=== PATIENT | male | born 1980 | race Caucasian/White ===

== ENCOUNTER 2023-07-08 07:07 | Emergency (ER) | payer MEDICAID, SELFPAY ==
[2023-07-08] VITALS (17 sets, daily range): BP systolic 139–164; BP diastolic 97–112; PULSE 74–102; RESP 13–23; TEMP 36.6–37; O2SAT 92–100
--- NOTE | ~2023-07-08 | XR_ITS ---
Portable chest x-ray Comparison: None Clinical History: Chest pain, cough Findings: Lungs are clear, without focal consolidation or pleural effusion. Cardiomediastinal silho uette is stable. Bones and soft tissues are unremarkable. Impression: Clear lungs. Reviewed, dictated and finalized at location . OL DIRECTOR Impression: Clear lungs.
--- NOTE | 2023-07-08 07:18 | ECG_ITS ---
Measurements Intervals [place] Rate: 94 P: 32 HI: 172 QRS: 23 QRSD: 93 T: 41 QT: 376 QTc: 471 Interpretive Statements SINUS RHYTHM NORMAL ECG NO PREVIOUS ECG AVAILABLE FOR COMPARISON Electronically Signed On 07-08-2023 7:59:03 FUSION OPERATOR by Darci Knox D.O.
[2023-07-08 07:43] LABS: Basophils Percent Auto 0.4 % (0.2-1.2); Eosinophils Absolute Auto 0.1 K/mm3 (0-0.3); Eosinophils Percent Auto 1.2 % (0-4.4); Hematocrit 44.1 % (42.0-52.0); Hemoglobin 14.3 g/dL (14.0-18.0); Immature Granulocyte Absolute 0.02 K/mm3 (0.00-0.031); Immature Granulocyte Percent A 0.4 % (0-0.5); Lymphocytes Percent Auto 46.3 % (18.3-44.2); Mean Corpuscular HGB Conc 32.4 g/dl (32-36); Mean Corpuscular Hemoglobin 31.8 pg (26-34); Mean Platelet Volume 9.2 fl (7.4-10.4); Monocytes Absolute Auto 0.3 K/mm3 (0.1-0.6); Monocytes Percent Auto 6.6 % (2.6-8.5); Neutrophils Absolute Auto 2.3 K/mm3 (1.3-6.7); Neutrophils Percent Auto 45.1 % (45.5-73.1); Platelet Count Result 205 k/mm3 (150-375); Red Cell Distribution Width 13.9 % (11.5-14.5); White Blood Count 5.2 K/mm3 (4.5-10.0)
[2023-07-08 07:51] LABS: Alanine Aminotransferase 58 U/L (6-50); Albumin Level 3.9 g/dL (3.5-5.1); Alkaline Phosphatase 74 U/L (38-126); Anion Gap 9 mmol/L (8-16); Aspartate Amino Transferase 58 U/L (17-59); Bilirubin,Total 0.2 mg/dL (0.2-1.3); Blood Urea Nitrogen 10 mg/dL (9-20); Calcium 8.4 mg/dL (8.4-10.2); Carbon Dioxide 26 mmol/L (22-30); Chloride 103 mmol/L (98-107); Estimated CRCL calculation 174 ml/min; Estimated Glomerular Filt Rate > 60; Glucose 104 mg/dL (65-110); Potassium 4.3 mmol/L (3.4-5.0); Sodium 138 mmol/L (137-145)
--- NOTE | 2023-07-08 08:13 | ED.GENADULT ---
HPI - General Adult General Chief complaint: Shortness of Breath/Dyspnea Stated complaint: shortness of breath Time Seen by Provider: 07/08/23 07:19 History of Present Illness HPI narrative: 43-year-old male presenting to emergency department for evaluation persistent cough congestion and is not feeling well. Patient suspects but 2 weeks ago he had COVID. Patient had similar symptoms with cough and congestion to a co-worker who did test positive for COVID. Patient did not test himself but assumed it was COVID. Patient states that over the course of the last 2 weeks his symptoms have not improved. Patient is a smoker. Patient denies any prior cardiac history. Patient denies any chest pain with this. Related Data Allergies Allergy/AdvReac Type Severity Reaction Status Date / Time No Known Allergies Allergy Verified 07/08/23 07:09 Review of Systems Review of Systems: All systems reviewed & are unremarkable except as noted in HPI and below Exam Narrative: APPEARANCE: Well appearing, no pain, no distress, well-nourished. HEAD: normocephalic, atraumatic. EYES: PERRLA/EOMI, conjunctivae clear. NOSE: Normal no drainage EARS:TMS clear with good light reflex. THROAT: Pharynx clear, no exudate. NECK: Supple. No adenopathy, no masses. RESPIRATORY: Airway patent, respirations nonlabored. After [place] wheeze and lower lung sood CARDIOVASCULAR: Regular rate and rhythm without murmurs rubs or gallops. ABDOMINAL: Soft, nontender, nondistended, normal bowel sounds MUSCULOSKELETAL: Moves all extremities. Strength/ROM intact, No edema, No calf tenderness. NEURO: Alert. Cranial nerves II through XII intact. Grossly intact SKIN: Warm, dry. Normal Color Course Course Emergency Course: 43-year-old male presents emergency department for evaluation of cough and congestion after COVID infection approximately 2 weeks ago. Patient is afebrile with no leukocytosis and a stable hemoglobin. Patient has no oxygen requirement. Patient's D-dimer is not elevated. Patient has no acute abnormalities on his CMP. Patient was positive for COVID. A 2 to the patient being a smoker and having for symptoms for greater than 2 weeks patient will be started on antibiotics. Patient states he has a nebulizer at home and will be prescribed Ativan and patient also be provided Ativan inhaler. Patient was encouraged to quit smoking. Patient was encouraged of close follow-up with primary care physician. Patient was stable at time of discharge and did feel improved. Vital Signs Vital signs: Vital Signs Temperature 97.8 F 07/08/23 07:11 Pulse Rate 100 07/08/23 07:11 Respiratory Rate 18 07/08/23 07:11 Blood Pressure 152/112 H 07/08/23 07:11 Pulse Oximetry 96 07/08/23 07:11 Oxygen Delivery Room Air 07/08/23 07:11 Temperature 98.6 F 07/08/23 07:22 Pulse Rate 102 H 07/08/23 10:30 Respiratory Rate 20 07/08/23 10:30 Blood Pressure 158/102 H 07/08/23 10:30 Pulse Oximetry 100 07/08/23 10:30 Oxygen Delivery Room Air 07/08/23 07:22 Medical Decision Making Differential Diagnosis Differential Diagnosis: COVID, pneumonia, RSV, influenza, COPD, CHF Vital Signs Vital Signs: Vital Signs Temperature 97.8 F 07/08/23 07:11 Pulse Rate 100 07/08/23 07:11 Respiratory Rate 18 07/08/23 07:11 Blood Pressure 152/112 H 07/08/23 07:11 Pulse Oximetry 96 07/08/23 07:11 Oxygen Delivery Room Air 07/08/23 07:11 Temperature 98.6 F 07/08/23 07:22 Pulse Rate 102 H 07/08/23 10:30 Respiratory Rate 20 07/08/23 10:30 Blood Pressure 158/102 H 07/08/23 10:30 Pulse Oximetry 100 07/08/23 10:30 Oxygen Delivery Room Air 07/08/23 07:22 Lab Data Lab results reviewed: Yes I reviewed the patient's lab results. 07/08/23 07:33 07/08/23 07:33 Labs: Lab Results 07/08/23 Range/Units 07:33 WBC 5.2 (4.5-10.0) K/mm3 RBC 4.50 L (4.6-6.20) M/mm3 Hgb 14.3 (14.0-18.
[2023-07-08 08:19] LABS: Influenza A QL RT-PCR Negative (Negative); Influenza B QL RT-PCR Negative (Negative); RSV RNA, RT-PCR Negative (Negative); SARS-CoV-2 RNA PCR Positive (Negative)
[2023-07-08] MEDS: ALBUTEROL SULFATE NEB 2.5 MG/3 ML INH INHALATION (08:25)
[2023-07-08 09:37] LABS: D Dimer < 0.22 ug/mL (<0.48)
[2023-07-08] MEDS: AZITHROMYCIN 250 MG TABLET 500 MG PO (10:27)
[2023-07-08] MEDS: AMOXICILLIN/CLAVULANATE K 875-125 MG TAB 1 TABLET (10:28)
== END 2023-07-08 10:30 | disposition home or self-care (01) ==
PROVIDERS: Emergency Provider Emergency Medicine
DX: U07.1 COVID-19 (principal); J18.9 Pneumonia, unspecified organism; F17.200 Nicotine dependence, unspecified, uncomplicated
CPT/HCPCS: 36415; 71045; 80053; 85025; 85380; 87637; 93005; 94640; 99283; A9270

== ENCOUNTER 2023-10-15 12:30 | Emergency (ER) | payer MEDICAID, SELFPAY ==
--- NOTE | ~2023-10-15 | CT_ITS ---
EXAMINATION: CT abdomen pelvis wo con DATE: 10/15/2023 13:13 INDICATION: Periumbilical pain TECHNIQUE: Computed tomography (CT) of the abdomen and pelvis was performed without intravenous contr ast. The dose-length product was 1630.86 mGy-cm. Automated exposure control and iterative reconstruct ion technique were employed. COMPARISON: None. FINDINGS: Lung bases are unremarkable. Heart size normal. No significant pleural or pericardial effus ion. Fatty infiltration of the liver. The spleen, pancreas, adrenal glands and left kidney are unrema rkable. There is a small subcentimeter hypodensity of the right kidney, too small to characterize, al though unlikely benign. There is a small fat-containing umbilical hernia. There is a subtle infiltrat ion of the periumbilical fat. No abnormal pelvic masses or fluid collections. No significant vascular abnormality. No lymphadenopathy. Gallbladder is present. IMPRESSION: 1. Small fat-containing umbilical hernia. Subtle fatty infiltration of the periumbilical hernia fat. Cannot exclude cellulitis or fat necrosis. Reviewed, dictated and finalized at location B. IMPRESSION: 1. Small fat-containing umbilical hernia. Subtle fatty infiltration of the noy umbilical hernia fat. Cannot exclude cellulitis or fat necrosis.
[2023-10-15 12:57] VITALS: BP 146/93; PULSE 96; RESP 16; TEMP 36.7; O2SAT 100
[2023-10-15 13:12] LABS: Appearance Urine Clear (Clear); Bilirubin Urine Negative (Negative); Blood Urine Negative (Negative); Color Urine Dark Yellow (Yellow); Glucose Urine UA Negative (Negative); Ketones Urine Trace mg/dL (Negative); Leukocyte Esterase Ur Negative LEU/UL (Negative); Nitrate Urine Negative (Negative); Protein Urine Negative (Negative); pH Urine 5.5 (5.0-9.0)
[2023-10-15 13:14] LABS: Basophils Percent Auto 0.5 % (0.2-1.2); Eosinophils Absolute Auto 0.1 K/mm3 (0-0.3); Eosinophils Percent Auto 1.2 % (0-4.4); Hematocrit 42.8 % (42.0-52.0); Hemoglobin 13.8 g/dL (14.0-18.0); Immature Granulocyte Absolute 0.01 K/mm3 (0.00-0.031); Immature Granulocyte Percent A 0.2 % (0-0.5); Lymphocytes Absolute Auto 0.69 K/mm3 (0.9-3.2); Lymphocytes Percent Auto 16.7 % (18.3-44.2); Mean Corpuscular HGB Conc 32.2 g/dl (32-36); Mean Corpuscular Hemoglobin 32.2 pg (26-34); Mean Corpuscular Volume 99.8 fl (80-100); Mean Platelet Volume 9.3 fl (7.4-10.4); Monocytes Absolute Auto 0.3 K/mm3 (0.1-0.6); Monocytes Percent Auto 6.6 % (2.6-8.5); Neutrophils Absolute Auto 3.1 K/mm3 (1.3-6.7); Neutrophils Percent Auto 74.8 % (45.5-73.1); Platelet Count Result 158 k/mm3 (150-375); Red Blood Count 4.29 M/mm3 (4.6-6.20); Red Cell Distribution Width 14.1 % (11.5-14.5); White Blood Count 4.1 K/mm3 (4.5-10.0)
[2023-10-15 13:17] LABS: Add Urine Microscopic? NO
[2023-10-15] MEDS: oxyCODONE/ACETAMINOPHEN (*CRX) 5-325 MG TABLET 1 TABLET PO (13:17)
[2023-10-15 13:23] LABS: Alanine Aminotransferase 28 U/L (6-50); Albumin Level 3.9 g/dL (3.5-5.1); Alkaline Phosphatase 60 U/L (38-126); Anion Gap 4 mmol/L (4-12); Aspartate Amino Transferase 29 U/L (17-59); Bilirubin,Total 0.6 mg/dL (0.2-1.3); Blood Urea Nitrogen 8 mg/dL (9-20); Calcium 8.7 mg/dL (8.4-10.2); Carbon Dioxide 26 mmol/L (22-30); Chloride 103 mmol/L (98-107); Estimated CRCL calculation 185 ml/min; Estimated Glomerular Filt Rate > 60; Glucose 113 mg/dL (65-110); Potassium 3.8 mmol/L (3.4-5.0); Sodium 133 mmol/L (137-145)
--- NOTE | 2023-10-15 13:31 | ED.ABDPAIN ---
HPI - Abdominal Pain General Chief Complaint: Abdominal Pain Stated Complaint: abdominal pain Time Seen by Provider: 10/15/23 12:34 History of Present Illness HPI narrative: This is a 43-year-old male, with no significant past medical history, presents to the emergency department complaining of periumbilical abdominal pain for the past 2 days. The patient describes the pain as sharp without radiation and no obvious cause. He states it worsens after eating and improves with rest. He states his last bowel movement was 24 hours ago. He is not sure the last time he passed gas. He states in the past 3 days, he has had significantly increased cough, though denies shortness of breath. Related Data Allergies Allergy/AdvReac Type Severity Reaction Status Date / Time No Known Allergies Allergy Verified 10/15/23 12:32 Review of Systems Review of Systems: CONSTITUTIONAL: Denies fever, chills, or sweats. CARDIOVASCULAR: Denies chest pain, palpitations, or edema. RESPIRATORY: Nonproductive cough Denies dyspnea. GASTROINTESTINAL: Periumbilical abdominal pain Denies nausea, vomiting, or diarrhea. GENITOURINARY: . Denies dysuria or hematuria. SKIN: Denies rash or itching. MUSCULOSKELETAL: Denies back pain, joint pain, or myalgia. NEUROLOGIC: Denies headache, numbness, dizziness, or weakness. PSYCHIATRIC: Denies anxiety or depression. PMFSH Past Medical History Medical History (Updated 10/15/23 @ 13:43 by Tee Ruiz MD) No significant past medical history Surgical History Surgical History (Updated 10/15/23 @ 13:43 by Tee Ruiz MD) No significant past surgical history Social History Social History (Updated 10/15/23 @ 13:43 by Tee Ruiz MD) Smoking status: Current every day smoker Alcohol intake: current Substance use: never Exam Narrative: GENERAL: Well-developed, well-nourished, and in no acute distress. HEAD: Normocephalic, atraumatic. EYES: PERRLA and EOMI. CHEST: Clear to auscultation. No respiratory distress. No wheezes rales or rhonchi HEART: Regular rate and rhythm. No murmur heard. Normal peripheral pulses. ABDOMEN: Soft, tender palpation in the epigastric region, with a tender mobile mass, nondistended, normal active bowel sounds. With the patient placed in Trendelenburg position, I am able to read to reduce the mass at the umbilicus. Afterwards, the patient states pain is improved. EXTREMITIES: Normal range of motion. No edema. SKIN: Warm, dry, no rash. NEURO: Alert and oriented x3. No focal deficit. Moving all 4 limbs spontaneously PSYCH: Normal mood and affect. Course Course Emergency Course: 13:33 - The patient's exam is consistent with umbilical hernia. I was able to reduce this at bedside. CT demonstrates changes consistent with same. There are no changes concerning for strangulation. CBC and CMP within normal limits. UA not concerning for urinary tract infection. Will discharge with pain medications and recommendation for primary care and general surgery follow-up. I discussed the findings and recommendations with the patient. Discussed return and emergency precautions including signs/symptoms of acute abdomen and obstruction. The patient voiced understanding and agreement with the plan. All questions answered to his satisfaction. Vital Signs Vital signs: Vital Signs Temperature 98.0 F 10/15/23 12:57 Pulse Rate 96 10/15/23 12:57 Respiratory Rate 16 10/15/23 12:57 Blood Pressure 146/93 H 10/15/23 12:57 Pulse Oximetry 100 10/15/23 12:57 Oxygen Delivery Room Air 10/15/23 12:57 Temperature 98.0 F 10/15/23 12:57 Pulse Rate 96 10/15/23 12:57 Respiratory Rate 16 10/15/23 12:57 Blood Pressure 146/93 H 10/15/23 12:57 Pulse Oximetry 100 10/15/23 12:57 Oxygen Delivery Room Air 10/15/23 12:57 MDM - Abdominal Pain MDM Narrative Medical decision making narrative: Plan: Imaging, pain control, labs, reassess Differential
[2023-10-15 13:57] VITALS: BP 150/92; PULSE 95; RESP 18; O2SAT 96
== END 2023-10-15 13:58 | disposition home or self-care (01) ==
PROVIDERS: Emergency Provider Preventive Medicine Aerospace Medicine; Referring Provider Emergency Medicine
DX: R10.33 Periumbilical pain (principal); K42.9 Umbilical hernia without obstruction or gangrene; F17.210 Nicotine dependence, cigarettes, uncomplicated
CPT/HCPCS: 36415; 74176; 80053; 81003; 85025; 99284; A9270

== ENCOUNTER 2023-11-14 12:23 | Outpatient (CLI) | payer MEDICAID, SELFPAY ==
--- NOTE | ~2023-11-14 | US_ITS ---
Limited Abdominal Sonogram: Real-time sonographic imaging of the right upper quadrant was performed. Clinical History: Fatty liver Findings: The liver appears echogenic, with no evidence of mass lesion or bile duct dilatation. Main portal vein demonstrates normal direction of flow. The gallbladder is well distended, and appears no rmal with no evidence of gallstone or wall thickening. The common bile duct measures 5 mm. The visua lized pancreas, aorta, and IVC are unremarkable. Impression: Diffuse fatty infiltration of liver. Reviewed, dictated and finalized at location M. Impression: Diffuse fatty infiltration of liver.
== END 2023-11-14 12:24 | disposition home or self-care (01) ==
PROVIDERS: PCP Emergency Medicine; Visit Provider Emergency Medicine
DX: K76.0 Fatty (change of) liver, not elsewhere classified (principal)
CPT/HCPCS: 76705

== ENCOUNTER 2024-08-25 11:16 | Emergency (ER) | payer SELFPAY ==
--- NOTE | ~2024-08-25 | XR_ITS ---
XR chest 2V Ordering provider: Dariana Arias III DO History: 44 years Male with . leg swelling . Comparison: July 08, 2023 FINDINGS: MEDIASTINUM: The cardiac silhouette is slightly enlarged. LUNGS: No infiltrates, effusions or pneumothorax. OTHER: No free air under the diaphragm. IMPRESSION: No acute cardiopulmonary pathology. Reviewed, dictated and finalized at location A. GER BABY
--- NOTE | ~2024-08-25 | XR_ITS ---
EXAMINATION: XR knee RT 3V DATE: 08/25/2024 12:34 INDICATION: Right knee pain and swelling TECHNIQUE: Anteroposterior, oblique and crosstable lateral views of the right knee were obtained COMPARISON: None. FINDINGS: Alignment is normal. No fracture. Joint spaces appear normal on nonweightbearing imaging with no ost eophytosis. No joint effusion. Soft tissues are unremarkable. IMPRESSION: 1. Negative right knee radiographs. Reviewed, dictated and finalized at location B. E TIER
--- NOTE | ~2024-08-25 | XR_ITS ---
EXAMINATION: XR hip RT 2V w AP pelvis DATE: 08/25/2024 12:34 INDICATION: Right hip pain TECHNIQUE: Anteroposterior view of the pelvis and anteroposterior and frog-leg lateral views of the r ight hip were obtained. COMPARISON: None. FINDINGS: Bone alignment is normal. No fracture or suspected osteonecrosis. There is bilateral decreased femora l head/neck offset which could predispose towards cam-type femoral acetabular impingement with possib le impingement bump at the anterosuperior right femoral head neck junction. Mild bilateral hip and sa croiliac osteoarthritis.. IMPRESSION: 1. Mild bilateral hip and sacroiliac osteoarthritis. No acute osseous abnormality. 2. Bilateral decreased femoral head/neck offset which could predispose towards cam-type femoral aceta bular impingement. Reviewed, dictated and finalized at location B. BPM DEVELOPER IMPRESSION: 1. Mild bilateral hip and sacroiliac osteoarthritis. No acute osseous abnormali ty. 2. Bilateral decreased femoral head/neck offset which could predispose towards cam-type femoral acetabular impingement.
[2024-08-25 11:21] VITALS: BP 219/133; PULSE 80; RESP 19; O2SAT 97
--- NOTE | 2024-08-25 11:24 | ECG_ITS ---
Test Date: 2024-08-25 11:28:36 Measurements Intervals [place] Rate: 71 P: 40 [place]: 167 QRS: 35 QRSD: 94 T: 44 QT: 406 QTc: 442 Interpretive Statements SINUS RHYTHM WITH SINUS ARRHYTHMIA No previous ECG available for comparison Electronically Signed On 08-26-2024 10:59:52 [employer] by Waylon Stanford M.D.
[2024-08-25 11:49] LABS: Basophils Percent Auto 0.3 % (0.2-1.2); Eosinophils Percent Auto 0.4 % (0-4.4); Hematocrit 37.8 % (42.0-52.0); Hemoglobin 12.5 g/dL (14.0-18.0); Immature Granulocyte Absolute 0.04 K/mm3 (0.00-0.031); Immature Granulocyte Percent A 0.4 % (0-0.5); Lymphocytes Absolute Auto 2.06 K/mm3 (0.9-3.2); Lymphocytes Percent Auto 21.1 % (18.3-44.2); Mean Corpuscular HGB Conc 33.1 g/dl (32-36); Mean Corpuscular Hemoglobin 32.7 pg (26-34); Mean Platelet Volume 9.5 fl (7.4-10.4); Monocytes Absolute Auto 0.6 K/mm3 (0.1-0.6); Monocytes Percent Auto 5.6 % (2.6-8.5); Neutrophils Percent Auto 72.2 % (45.5-73.1); Platelet Count Result 223 k/mm3 (150-375); Red Blood Count 3.82 M/mm3 (4.6-6.20); White Blood Count 9.8 K/mm3 (4.5-10.0)
[2024-08-25 11:58] LABS: Prothrombin Time 12.9 Seconds (11.1-14.7)
[2024-08-25 11:59] LABS: Partial Thromboplastin Time 25.3 Seconds (22.3-36.8)
--- NOTE | 2024-08-25 12:02 | ED_ITS ---
HPI - General Adult General Chief complaint: Recheck/Abnormal Lab/Rx Stated complaint: htn Time Seen by Provider: 08/25/24 11:50 History of Present Illness HPI narrative: Pt presents with right knee and hip pain from UC but his BP was elevated and he had a weight gain of 16 lbs in a wek. Pt has not noticed any weight gain and denies SOB or C but is out of two of his BP meds. Related Data Allergies Allergy/AdvReac Type Severity Reaction Status Date / Time No Known Allergies Allergy Verified 08/25/24 11:25 Review of Systems 2 Review of Systems: All systems reviewed & are unremarkable except as noted in HPI and below PMFSH Past Medical History Medical History No significant past medical history Surgical History Surgical History No significant past surgical history Social History Social History (Updated 10/31/23 @ 14:51 by JAHAIRA Marquez) Smoking status: Current every day smoker Alcohol intake: current Substance use: never Do You Feel Safe in your Home?: Yes Lack of Transportation: No Lack of Food: Never True Current Housing: I Have Housing Concerned About Future Housing: No Difficulty Paying Gas/Electric Bills: No Difficulty Paying for Meds: No Currently Unemployed: No Education: High School Diploma/GED Difficulty w/ Childcare or Family Care: No Exam 2 Const: General: healthy appearing and no acute distress Nutritional Appearance: well nourished Orientation/consciousness: patient oriented x3 Limitations: no limitations HENMT: Mouth: Yes Normal oral and palatal mucosa present and Yes moist mucous membranes Eyes: EOM: EOMs intact bilaterally Neck: Neck: normal visual inspection Resp: Effort & Inspection: normal respiratory effort Auscultation: clear to auscultation bilaterally Cardio: Rate: regular rate Rhythm: regular rhythm GI: GI Palp: Yes Soft to palpation and Yes Tenderness to palpation present (GI) Skin: General skin exam: normal color Rashes: no rashes Wounds: no wounds Neuro: General: patient oriented x3, moves all extremities and no focal motor deficits Cranial nerves: Yes Nystagmus not present Speech: normal speech Extrem: General: normal to inspection and no clubbing, cyanosis or edema Psych: Mental Status: mental status grossly normal Affect: normal affect Attitude: cooperative Course Vital Signs Vital signs: Vital Signs Pulse Rate 80 08/25/24 11:21 Respiratory Rate 19 08/25/24 11:21 Blood Pressure 219/133 H 08/25/24 11:21 Pulse Oximetry 97 08/25/24 11:21 Oxygen Delivery Room Air 08/25/24 11:21 Pulse Rate 82 08/25/24 14:50 Respiratory Rate 16 08/25/24 14:50 Blood Pressure 192/117 H 08/25/24 14:50 Pulse Oximetry 94 08/25/24 14:50 Oxygen Delivery Room Air 08/25/24 11:21 Medical Decision Making MDM Narrative Medical decision making narrative: Pt went to today for knee pain of unknown etiology but his BP was elevated and he reportedly gained 16 lbs in a week. Will check labs and give some clonidine for BP and get x rays of knee and hip. x rays non acute, bnp elevated remainder of labs neg. discussed with Dena Major who says is ok for discharge and restarting BP meds. Their office accepts his insurance so will call for follow up appointment. Vital Signs Vital Signs: Vital Signs Pulse Rate 80 08/25/24 11:21 Respiratory Rate 19 08/25/24 11:21 Blood Pressure 219/133 H 08/25/24 11:21 Pulse Oximetry 97 08/25/24 11:21 Oxygen Delivery Room Air 08/25/24 11:21 Pulse Rate 82 08/25/24 14:50 Respiratory Rate 16 08/25/24 14:50 Blood Pressure 192/117 H 08/25/24 14:50 Pulse Oximetry 94 08/25/24 14:50 Oxygen Delivery Room Air 08/25/24 11:21 Lab Data 08/25/24 11:36 08/25/24 11:36 Labs: Lab Results 08/25/24 08/25/24 Range/Units 11:36 11:38 WBC 9.8 (4.5-10.0) K/mm3 RBC 3.82 L (4.6-6.20) M/mm3 Hgb 12.5 L (14.0-18.0) g/dL Hct 37.8 L (42.0-52.0) % MCV 99.0 (80-100) fl MCH 32.7 (26-34) pg MCHC 33.1 (32-36) g/dl RDW 14.0 (11.5-14.5) % Plt Count 223 (150-375) k/mm3 MPV 9.5 (7.4-10.4) fl Immature Gran % (Auto) 0.4 (0-0.5) % Neut % (Auto) 72.2 (45.5-73.1) % Lymph % (Auto) 21.1 (18.3-44.2) % Davidson % (Auto) 5.6 (2.6-8.5) % Eos % (Auto) 0.4 (0-4.4) % Baso % (Auto) 0.3 (0.2-1.2) % Lymph # (Auto) 2.06 (0.9-3.2) K/mm3 [place] # (Auto) 0.6 (0.1-0.6) K/mm3 Eos # (Auto) 0.0 (0-0.3) K/mm3 Baso # (Auto) 0.0 (0.0-0.1) K/mm3 Abs Immat Gran (auto) 0.04 H (0.00-0.031) K/mm3 Absolute Neuts (auto) 7.0 H (1.3-6.7) K/mm3 Absolute Nucleated RBC 0.000 (0.0-0.012) K/mm3 Nucleated RBC % 0.0 (0.0-0.2) % PT 12.9 (11.1-14.7) Seconds INR 1.0 APTT 25.3 (22.3-36.8) Seconds Sodium 138 (137-145) mmol/L Potassium 4.0 (3.4-5.0) mmol/L Chloride 103 (98-107) mmol/L Carbon Dioxide 26 (22-30) mmol/L Anion Gap 9 (4-12) mmol/L BUN 15 D (9-20) mg/dL Creatinine 0.54 L (0.7-1.3) mg/dL Estim Creat Clear Calc 230 ml/min Estimated GFR > 60 (59 - ) Glucose 118 H (65-110) mg/dL Calcium 8.4 (8.4-10.2) mg/dL Total Bilirubin 0.7 (0.2-1.3) mg/dL AST 51 (17-59) U/L ALT 54 H (6-50) U/L Alkaline Phosphatase 56 (38-126) U/L Troponin I < 0.012 (0.000-0.034) ng/mL NT-Pro-B Natriuret Pep 1440 H (19.9-100) pg/mL Total Protein 7.0 (6.3-8.2) g/dL Albumin 3.6 (3.5-5.1) g/dL Influenza A (RT-PCR) Negative (Negative) Influenza B (RT-PCR) Negative (Negative) RSV (RT-PCR) Negative (Negative) SARS-CoV-2 RNA (RT-PCR) Negative (Negative) Discharge Plan Discharge Clinical Impression: Hypertension Patient Disposition: Home, Self-Care Condition: Improved Instructions: Antibiotic Form, Hypertension (ED) Patient Language: Croatian Prescriptions: New losartan 100 mg tablet 100 mg PO DAILY Qty: 30 0RF carvedilol 12.5 mg tablet 12.5 mg PO Q12H Qty: 60 0RF Rx Instructions: must administer with a meal/food amlodipine [Norvasc] 10 mg tablet 10 mg PO DAILY Qty: 30 0RF Follow-up/Referrals: Aldo House MD [Physician] - 1 Week Luis Kathleen MD [Primary Care Provider] -
[2024-08-25 12:08] LABS: Alanine Aminotransferase 54 U/L (6-50); Albumin Level 3.6 g/dL (3.5-5.1); Alkaline Phosphatase 56 U/L (38-126); Anion Gap 9 mmol/L (4-12); Aspartate Amino Transferase 51 U/L (17-59); Bilirubin,Total 0.7 mg/dL (0.2-1.3); Blood Urea Nitrogen 15 mg/dL (9-20); Calcium 8.4 mg/dL (8.4-10.2); Carbon Dioxide 26 mmol/L (22-30); Chloride 103 mmol/L (98-107); Estimated CRCL calculation 230 ml/min; Estimated Glomerular Filt Rate > 60; Glucose 118 mg/dL (65-110); Sodium 138 mmol/L (137-145)
[2024-08-25 12:15] LABS: NT Pro B Type Natriuretic Pept 1440 pg/mL (19.9-100); Troponin I < 0.012 ng/mL (0.000-0.034)
[2024-08-25 12:19] VITALS: BP 209/131; PULSE 77; RESP 22; O2SAT 95
[2024-08-25] MEDS: cloNIDine HCL 0.1 MG TABLET PO ×2 (12:21→13:34)
[2024-08-25 12:25] LABS: Influenza A QL RT-PCR Negative (Negative); Influenza B QL RT-PCR Negative (Negative); RSV RNA, RT-PCR Negative (Negative); SARS-CoV-2 RNA PCR Negative (Negative)
--- OUTSIDE RECORDS SUMMARY | 2024-08-25 13:09 | XMS_ITS | Clinical Summary ---
Author Organization [address] Address [address] [place] [id number] Care Team Providers Care Powerplant Operator Name Role Phone Unknown, Notinfile Primary Care Provider Unavail able Allergies No known active allergies Medications amLODIPine (NORVASC) 10 mg tablet amlodipine 10 mg tablet Active carvediloL (Coreg) 12.5 mg tablet Coreg 12.5 mg tablet Active ergocalciferol (VITAMIN D) 50,000 unit capsule ergocalciferol (vitamin D2) 1,250 mcg (50,000 unit) capsule Active losartan (COZAAR) 100 mg tablet losartan 100 mg tablet Active doxycycline (VIBRAMYCIN) 100 mg capsuleIndicatio ns:Acute non-recurrent pansinusitis Take 1 tablet/capsule (100 mg total) by mouth 2 (two) times a day for 7 days 14 tablet/caps ule 08/20/19 25 025 Active albuterol HFA (PROVENTIL HFA,VENTOLIN HFA,PROAIR HFA) 90 mcg/actuation inhalerIndicatio ns:Mild intermittent asthma with exacerbation Inhale 2 puffs every 6 (six) hours as needed for wheezing or shortness of breath 1 each 08/20/19 25 Active albuterol 2.5 mg /3 mL (0.083 %) nebulizer solutionIndicati ons:Mild intermittent asthma with exacerbation Take 3 mL (2.5 mg total) by nebulization 4 (four) times a day as needed for wheezing or shortness of breath 90 mL 08/20/19 25 026 Active predniSONE (DELTASONE) 20 mg tabletIndication s:Mild intermittent asthma with exacerbation Take 2 tablets (40 mg) by mouth daily for 3 days 6 tablet 08/20/19 25 025 Active Problems No known active problems Encounters Date Type Department Care Team Description 08/25/2024 10:30 AM LIMB DRIVER Office Visit [facility] at [address] [phone] Connie Reilly PA Hypertensive urgency (Primary Dx); Lower extremity edema 08/20/2024 10:15 AM LIMB DRIVER Office Visit [facility] Medical [facility] at [address] [phone] Dede Ferrer NP Acute non-recurrent pansinusitis (Primary Dx); Mild intermittent asthma with exacerbation from Last 3 Months Social History Tobacco Use Types Packs/Day Years Used Date Smoking Tobacco: Never Assessed Sex and Gender Information Value Date Recorded Sex Assigned at Not on file Legal Sex Male 4:39 PM LIMB DRIVER Gender Identity Not on file Sexual Orientation Not on file Obstetrics History Last Filed Vital Signs Vital Sign Reading Time Taken Comments Blood Pressure 202/122 08/25/2024 10:30 AM LIMB DRIVER Pulse 84 08/25/2024 10:20 AM LIMB DRIVER Temperature 36.8 C (98.3 F) 08/25/2024 10:20 AM LIMB DRIVER Respiratory Rate 22 08/25/2024 10:2 0 AM LIMB DRIVER Oxygen Saturation 95% 08/25/2024 10: 20 AM LIMB DRIVER Inhaled Oxygen Concentration - - Weight 161.6 kg (356 lb 3.2 oz) 025 10:20 AM LIMB DRIVER Height 177.8 cm (5' 10 ) 08/25/2024 10: 20 AM LIMB DRIVER Body Mass Index 51.11 08/25/2024 10:20 AM LIMB DRIVER Plan of Treatment Health Maintenance Due Date Last Done Comments Depression Screening 1980 Hepatitis C Screening 1980 DTaP/Tdap/Td Vaccine (1 - Tdap) 1991 Varicella Vaccines (1 of 2 - 13+ 2-dose series) 1993 Hepatitis B Screening 1998 Regular Well Visit/Exam 18-64 1998 Pneumococcal vaccine <65 (1 of 2 - PCV) 1999 Influenza Vaccine (#1) 2024 HPV Vaccines Aged Out No longer eligi ble based on patient's age to complete this topic Insurance [facility] Care Teams Powerplant Operator Relationship Specialty Start Date End Date Unknown, Notinfile PCP - General 08/20/24
--- OUTSIDE RECORDS SUMMARY | 2024-08-25 13:09 | XMS_ITS | Referral Summary ---
Author Organization [address] Address [address] [place] [phone] Care Team Providers Care Top Lift Cutter Name Role Phone Unknown, Notinfile Primary Care Provider Unavail able Encounters Date Type Department Care Team Description 08/25/2024 10:30 AM TOURIST ADVISER Office Visit [facility] Medical [facility] at [address] [phone] Connie Reilly PA Hypertensive urgency (Primary Dx); Lower extremity edema 08/20/2024 10:15 AM TOURIST ADVISER Office Visit [facility] Care at [address] [phone] Dede Ferrer NP Acute non-recurrent pansinusitis (Primary Dx); Mild intermittent asthma with exacerbation from Last 3 Months Allergies No known active allergies Medications amLODIPine [...] 025 Active Problems No known active problems Social History Tobacco Use Types Packs/Day Years Used Date Smoking Tobacco: Never Assessed Sex and Gender Information Value Date Recorded Sex Assigned at Not on file Legal Sex Male 4:39 PM TOURIST ADVISER Gender Identity Not on file Sexual Orientation Not on file Last Filed Vital Signs Vital Sign Reading Time Taken Comments Blood Pressure 202/122 08/25/2024 10:30 AM TOURIST ADVISER Pulse 84 08/25/2024 10:20 AM TOURIST ADVISER Temperature 36.8 C (98.3 F) 08/25/2024 10:20 AM TOURIST ADVISER Respiratory Rate 22 08/25/2024 10:2 0 AM TOURIST ADVISER Oxygen Saturation 95% 08/25/2024 10: 20 AM TOURIST ADVISER Inhaled Oxygen Concentration - - Weight 161.6 kg (356 lb 3.2 oz) 025 10:20 AM TOURIST ADVISER Height 177.8 cm (5' 10 ) 08/25/2024 10: 20 AM TOURIST ADVISER Body Mass Index 51.11 08/25/2024 10:20 AM TOURIST ADVISER Plan of Treatment Not on file Insurance [facility] Care Teams Top Lift Cutter Relationship Specialty Start Date End Date Unknown, Notinfile PCP - General 08/20/24
--- OUTSIDE RECORDS SUMMARY | 2024-08-25 13:09 | XMS_ITS | Encounter Summary ---
Author Organization [facility] Healthcare Address [address] [place] [address] Care Team Providers Care Director Of Patient Care Name Role Phone Unknown, Notinfile Primary Care Provider Unavail able Reason for Visit * Reason Comments Cough Symptoms started 10 days ago. Other symptoms have resolved but cough is lingering. Smoker. Feels like stuff is breaking up. chest congestion Encounter Details Date Type Department Care Team (Late st Contact Info) Description 08/20/2024 10:15 AM TELESERVICES REPRESENTATIVE Office Visit [facility] Medical Group Convenient Care at [address] [phone] Dede Ferrer, ARABIC TRANSLATOR [address] [place] [address] [address] [place] [address] Acute non-recurrent pansinusitis (Primary Dx); Mild intermittent asthma with exacerbation Social History Tobacco Use Types Packs/Day Years Used Date Smoking Tobacco: Never Assessed Sex and Gender Information Value Date Recorded Sex Assigned at Not on file Legal Sex Male 4:39 PM TELESERVICES REPRESENTATIVE Gender Identity Not on file Sexual Orientation Not on file documented as of this encounter Last Filed Vital Signs Vital Sign Reading Time Taken Comments Blood Pressure 150/98 08/20/2024 10:14 AM TELESERVICES REPRESENTATIVE Pulse 100 08/20/2024 10:14 AM TELESERVICES REPRESENTATIVE Temperature 37.3 C (99.1 F) 08/20/2024 10:14 AM TELESERVICES REPRESENTATIVE Respiratory Rate 20 08/20/2024 10:14 AM TELESERVICES REPRESENTATIVE Oxygen Saturation 95% 08/20/2024 10:14 AM TELESERVICES REPRESENTATIVE Inhaled Oxygen Concentration - - Weight 154.2 kg (340 lb) 08/20/2024 10:14 AM TELESERVICES REPRESENTATIVE Height 177.8 cm (5' 10 ) 08/20/2024 10:14 AM TELESERVICES REPRESENTATIVE Body Mass Index 48.78 08/20/2024 10:14 AM TELESERVICES REPRESENTATIVE documented in this encounter Patient Instructions * Patient Instructions* Dede Ferrer NP - 08/20/2024 10:15 AM TELESERVICES REPRESENTATIVE Doxycycline should be taken with at least 240 mL (8 oz) of water to minimize the risk of the tabletgetting stuck in the esophagus and causing local erosions. Patients should stand or sit upright for at least 30 minutes and should eat a meal after taking medication. You can get a sunburn more easily while taking doxycycline. Wear sunscreen when out side, hat etc, to protect against sunburn Symptomatic treatments include: -Over the counter antihistamine such as loratadine (Claritin) or cetirizine (Zyrtec) to reduce secretions. The D formula includes pseudoephedrine and can be helpful as a decongestant but SHOULD NOTBE USED IF YOU HAVE A HISTORY OF HIGH BLOOD PRESSURE. -Coricidin HBP may be taken for congestion if you have a history of high blood pressure. -Tessalon, Dextromethorphan (Robitussin) or Delsym for cough -Guafenesin (Mucinex) to thin secretions -Tylenol or ibuprofen for pain or fever. Use as directed -The use of hypertonic saline to irrigate nasal passageways can be helpful. Over the counter systems include Neti Pot and Nasopure. Use with distilled water. -Salt water gargles and throat lozenges can be helpful for sore throat. -To prevent spreading the illness to others cover your sneeze and cough into your arm and not your hand, don't allow others to eat or drink with the same utensils or glass, and use hand cutting room supervisor before touching people or common surfaces. -Apply warm packs to face to facilitate sinus drainage. - Use cool mist humidifier in bedroom at night. -Increase fluid consumption and Rest. -Follow up with your PCP in 1 week or sooner if symptoms worsen or are not improving as planned. -If you experience any shortness of breath, chest pain, or high fever >101, go to the Emergency Room. SERVICES REPRESENTATIVE * Attachments The following attachments cannot be sent through Care Everywhere. * Sinusitis (Keyboard Action Assembler) (Indian) documented in this encounter Ordered Prescriptions Prescription Sig Dispense Quantity Refills Last Filled Start Date End Date albuterol 2.5 mg /3 mL (0.083 %) nebulizer solutionIndicatio ns:Mild intermittent asthma with exacerbation Take 3 mL (2.5 mg total) by nebulization 4 (four) times a day as needed for wheezing or shortness of breath 90 mL 08/20/2024 6 albuterol HFA (PROVENTIL HFA,VENTOLIN HFA,PROAIR HFA) 90 mcg/actuation inhalerIndication s:Mild intermittent asthma with exacerbation Inhale 2 puffs every 6 (six) hours as needed for wheezing or shortness of breath 1 each 08/20/2024 doxycycline (VIBRAMYCIN) 100 mg capsuleIndication s:Acute non-recurrent pansinusitis Take 1 tablet/capsule (100 mg total) by mouth 2 (two) times a day for 7 days 14 tablet/capsul e 08/20/2024 5 predniSONE (DELTASONE) 20 mg tabletIndications :Mild intermittent asthma with exacerbation Take 2 tablets (40 mg) by mouth daily for 3 days 6 tablet 08/20/2024 5 documented in this encounter Plan of Treatment Not on file documented as of this encounter Visit Diagnoses Diagnosis Acute non-recurrent pansinusitis- Primary Mild intermittent asthma with exacerbation Unspecified asthma, with exacerbation documented in this encounter Historical Medications * This list may reflect changes made after this encounter. losartan (COZAAR) 100 mg tablet losartan 100 mg tablet ergocalciferol (VITAMIN D) 50,000 unit capsule ergocalciferol (vitamin D2) 1,250 mcg (50,000 unit) capsule carvediloL (Coreg) 12.5 mg tablet Coreg 12.5 mg tablet amLODIPine (NORVASC) 10 mg tablet amlodipine 10 mg tablet added in this encounter Care Teams Director Of Patient Care Relationship Specialty Start Date End Date Unknown, Notinfile PCP - General 08/20/24 documented as of this encounter
--- OUTSIDE RECORDS SUMMARY | 2024-08-25 13:09 | XMS_ITS | Encounter Summary ---
Author Organization [facility] Healthcare Address [address] [place] [address] Care Team Providers Care Tax Services Manager Name Role Phone Unknown, Notinfile Primary Care Provider Unavail able Reason for Visit * Reason Comments Knee Pain Right knee, started yesterday, hip to knee, hard to walk, hard to bend, no known injury Encounter Details Date Type Department Care Team (Late st Contact Info) Description 08/25/2024 10:30 AM SCHOOL YEAR NANNY Office Visit [facility] Medical Group Convenient Care at [address] [id number] Connie Reilly PA [address] [place] [address] [address] [place], [place] [id number] Hypertensive urgency (Primary Dx); Lower extremity edema Social History Tobacco Use Types Packs/Day Years Used Date Smoking Tobacco: Never Assessed Sex and Gender Information Value Date Recorded Sex Assigned at Not on file Legal Sex Male 4:39 PM SCHOOL YEAR NANNY Gender Identity Not on file Sexual Orientation Not on file documented as of this encounter Last Filed Vital Signs Vital Sign Reading Time Taken Comments Blood Pressure 202/122 08/25/2024 10:30 AM SCHOOL YEAR NANNY Pulse 84 08/25/2024 10:20 AM SCHOOL YEAR NANNY Temperature 36.8 C (98.3 F) 08/25/2024 10:20 AM SCHOOL YEAR NANNY Respiratory Rate 22 08/25/2024 10:2 0 AM SCHOOL YEAR NANNY Oxygen Saturation 95% 08/25/2024 10: 20 AM SCHOOL YEAR NANNY Inhaled Oxygen Concentration - - Weight 161.6 kg (356 lb 3.2 oz) 025 10:20 AM SCHOOL YEAR NANNY Height 177.8 cm (5' 10 ) 08/25/2024 10: 20 AM SCHOOL YEAR NANNY Body Mass Index 51.11 08/25/2024 10:20 AM SCHOOL YEAR NANNY documented in this encounter Plan of Treatment Not on file documented as of this encounter Visit Diagnoses Diagnosis Hypertensive urgency- Primary Lower extremity edema Edema documented in this encounter Care Teams Tax Services Manager Relationship Specialty Start Date End Date Unknown, Notinfile PCP - General 08/20/24 documented as of this encounter
--- OUTSIDE RECORDS SUMMARY | 2024-08-25 13:09 | XMS_ITS | CONTINUITY OF CARE DOCUMENT ---
Author Name ginger miles Address Unknown Organization [facility] Address [id number] [place] [address] [address], [place] [address] Phone [phone] Care Team Providers Care Petroleum Terminal Plant Operator Name Role Phone Milan Gan MD Unavailable [phone] KIA GOYAL MD Unavailable [phone] KIA GOYAL MD Unavailable [phone] PROBLEMS Condition Status Date Provider Notes Chest pain active Cori Edmund Hypertension active Katina Ventimiglia SAFETY COUNSELOR Diabetes mellitus, borderline active Katina Ventimiglia SAFETY COUNSELOR Nicotine dependence active Katina Ventimigl ia SAFETY COUNSELOR Obesity active Katina Ventimiglia SAFETY COUNSELOR Snoring active Katina Ventimiglia SAFETY COUNSELOR Umbilical hernia active Katina Ventimiglia SAFETY COUNSELOR Vitamin D deficiency active Katina Ventimig daisy SAFETY COUNSELOR Fatty liver disease active Katina Ventimigl ia SAFETY COUNSELOR Sleep apnea active Milan Gan MD ENCOUNTERS Date Type Provider Location Encounter Diag nosis 0 - 0 In-person encounter Office Visit Milan Gan MD [facility] Sleep apnea 1 - 1 In-person encounter Office Visit Milan Gan MD [facility] Chest painHypertensionDiabetes mellitus, borderlineNicotine dependenceObesitySnoringUmbilical herniaVitamin D deficiencyFatty liver disease VITAL SIGNS Date Observation Value Provider Body Mass Index (Ratio) 42.74 kg/m2 Rg Gan MD oxygen saturation, oximetry 97 % Nancie Leon pulse rate 95 /min Nancie Leon blood pressure, cuff size regular Seng Leon blood pressure, diastolic 98 mm[Hg] Seng Leon blood pressure, systolic 148 mm[Hg] Giovanni huertas Leon respiratory rate E&M 12 /min Nancie Leon weight E&M 324 [lb_av] Nancie Leon height E&M 73 [in_i] Nancie Leon Body Mass Index (Ratio) 22.56 kg/m2 Rg Gan MD blood pressure, diastolic 101 mm[Hg] Kelli nkLogkianna blood pressure, systolic 155 mm[Hg] Niyah kLogkianna blood pressure, cuff size large Co renay Shaffer blood pressure, diastolic 101 mm[Hg] Co renay Shaffer blood pressure, systolic 155 mm[Hg] Layton Shaffer oxygen saturation, oximetry 96 % Olivia Shaffer respiratory rate E&M 22 /min Olivia Medina pulse rate 84 /min Olivia Shaffer weight E&M 171 [lb_av] Olivia Shaffer height E&M 73 [in_i] Olivia Shaffer RESULTS Date Observation Value Provider Reference Range Interpretation Location lipoprotein, beta, serum, point, quantitative, calculated 104 mg/dL [facility] 0-99 High HDL cholesterol, serum 72 mg/dL [facility] >39 triglyceride, serum, random 113 mg/dL [facility] 0-149 cholesterol, serum 196 mg/dL [facility] 100-199 HISTORY OF MEDICATION USE Medication Status Instructions Dates Provider Indications Com ments ergocalciferol (vitamin D2) 1,250 mcg (50,000 unit) capsule active TAKE 1 CAPSULE BY MOUTH WEEKLY Katina Ventimiglia [facility] losartan 100 mg tablet active TAKE 1 TABLET BY MOUTH DAILY Olivia Shaffer amlodipine 10 mg tablet active TAKE 1 TABLET BY MOUTH DAILY Olivia Shaffer Coreg 12.5 mg tablet active Take 1 tablet by mouth twice a day Olivia Shaffer SOCIAL HISTORY Date Observation Value Provider personal history of marijuana use yes Milan Gan MD drug use no Milan Bassett alcohol use, average drinks per day 2 /d Milan Gan MD alcohol use, type beer Milan austin MD alcohol use yes Milan Bassett smoking history, tot al pack/day 0.5 Milan Gan MD cigarette use yes Milan Gan MD smoking status Current every da y smoker Milan Gan MD personal history of marijuana use yes Katina Ventimiglia [facility] drug use no Katina Ventimig daisy [facility] alcohol use, type beer Katina Chet timiglia [facility] alcohol use, average drinks per day 2 /d Katina Ventimiglia [facility] alcohol use yes Katina Ventimig daisy [facility] smoking history, tot al pack/day 0.5 Katina Ventimiglia [facility] cigarette use yes Katina Ventimi glia SAFETY COUNSELOR smoking status Current every da y smoker Katina Ventimiglia [facility] FAMILY HISTORY Family Member Condition Paternal Grandmother Stroke/CVA INSURANCE PROVIDERS Payer name Policy type / Coverage type [place] red constitution party ID [place] [employer] Medicaid [id number] ADVANCE DIRECTIVES Name Date DISCUSSED - NO DECISION MADE TREATMENT PLAN Date Name Performer Cardiology:Severe N eeds autopap Milan Gan MD Cardiology Milan Gan MD Cardiology: H emoglobin A1C 6.2% on recent labs L ifestyle modification encouaged. Milan Gan MD Cardiology:ECHO with mild LVH S leep study shows severe sleep apnea R enal duplex negative L ast visit B P 155/101 and has been elevated at home and office despite compliance with medications H e was started on coreg twice daily just today W ill do renal duplex to r/o renal artery stenosis W ill do echo to look for any LVH H ave asked him to monitor BP at home W ill return post testing or sooner if needed. His updated medication list for this problem includes: Losartan 100 Mg Tablet (Losartan) ..... Take 1 tablet by mouth daily Amlodipine 10 Mg Tablet (Amlodipine) ..... Take 1 tablet by mouth daily Coreg 12.5 Mg Tablet (Carvedilol) ..... Take 1 tablet by mouth twice a day Milan Gan MD Cardiology Milan Gan MD Cardiology:noted on recent US w eight loss encouraged and low fat diet H e is planned to see specialist Katina Montalvo [facility] Cardiology:cessation encouraged Katinaelsa Montalvo [facility] Cardiology:on replacement therap y Katinaelsa Montalvo [facility] Cardiology:Hemoglobi n A1C 6.2% on recent labs L ifestyle modification encouaged. Katina Montalvo [facility] Cardiology:Patient h as snoring and reports of apnea c oncern that untreated MANDA may be contributing to his difficult to control BP W ill do IHS Katinaelsa Montalvo [facility] Cardiology:BP 155/10 1 and has been elevated at home and office despite compliance with medications H e was started on coreg twice daily just today W ill do renal duplex to r/o renal artery stenosis W ill do echo to look for any LVH H ave asked him to monitor BP at home W ill return post testing or sooner if needed. His updated medication list for this problem includes: Losartan 100 Mg Tablet (Losartan) ..... Take 1 tablet by mouth daily Amlodipine 10 Mg Tablet (Amlodipine) ..... Take 1 tablet by mouth daily Coreg 12.5 Mg Tablet (Carvedilol) ..... Take 1 tablet by mouth twice a day Katina Montalvo SAFETY COUNSELOR Date Name LIPID PANEL Renal Artery Duplex Complete Echo Sleep Study Home HISTORY OF PROCEDURES Procedure Date Procedure Name Provider Procedure Notes S tatus EKG Milan Gan MD complete d
[2024-08-25 13:34] VITALS: BP 197/106; PULSE 80; RESP 25; O2SAT 94
[2024-08-25 13:59] VITALS: BP 200/114; PULSE 75; RESP 22; O2SAT 96
[2024-08-25 14:50] VITALS: BP 192/117; PULSE 82; RESP 16; O2SAT 94
== END 2024-08-25 15:09 | disposition home or self-care (01) ==
PROVIDERS: Emergency Provider Emergency Medicine; PCP Emergency Medicine
DX: I10 Essential (primary) hypertension (principal); Z20.822 Contact with and (suspected) exposure to COVID-19; F17.210 Nicotine dependence, cigarettes, uncomplicated
CPT/HCPCS: 36415; 71046; 73502; 73562; 80053; 83880; 84484; 85025; 85610; 85730; 87637; 93005; 99284; A9270

== ENCOUNTER 2025-03-19 16:35 | Emergency (ER) | payer OTHER, SELFPAY ==
[2025-03-19] VITALS (9 sets, daily range): BP systolic 107–146; BP diastolic 57–94; PULSE 68–83; RESP 20–27; TEMP 36.3; O2SAT 91–99
--- NOTE | ~2025-03-19 | XR_ITS ---
EXAMINATION: XR chest 2V 03/19/2025 18:38 INDICATION: Syncope PROCEDURE: AP portable chest COMPARISON: 08/25/2024 FINDINGS: The lungs are clear. The cardiomediastinal silhouette is within normal limits. There are no pleural effusions. There is no pneumothorax suspected. There are healed left rib fractures. IMPRESSION: 1: NO ACUTE CARDIOPULMONARY DISEASE. Reviewed, dictated and finalized at location O.
--- NOTE | ~2025-03-19 | US_ITS ---
EXAMINATION:US venous doppler LE BI INDICATION:Leg swelling TECHNIQUE: Multiple grayscale, color flow and Doppler images of the right and left lower extremity deep venous systems were obtained and reviewed. COMPARISON:No prior studies for comparison. FINDINGS: The common femoral, superficial femoral and popliteal veins demonstrate normal respiratory variation, augmentation and compressibility. Color flow is also seen within the posterior tibial, peroneal, greater saphenous and profunda veins. IMPRESSION: 1: No lower extremity deep venous thrombosis. Reviewed, dictated and finalized at location O.
--- OUTSIDE RECORDS SUMMARY | 2025-03-19 16:37 | XMS_ITS | Encounter Summary ---
Author Organization [facility] Healthcare Address [address] [place] [address] Care Team Providers Care Waterproofing Supervisor Name Role Phone Kavitha Zhong DO Primary Care Provider [phone] Encounter Details Date Type Department Care Team (Late st Contact Info) Description 03/18/2025 Results Follow-Up [facility] Medical Group Cardiology [address] [facility] [address] [place] [phone] Mary House MD [id number] [facility] [address] [address] Transthoracic Echo (TTE) Complete W Doppler/CF Social History Tobacco Use Types Packs/Day Years Used Date Smoking Tobacco: Every Day Cigarettes Sex and Gender Information Value Date Recorded Sex Assigned at Not on file Legal Sex Male 4:39 PM LAB SUPPORT SERVICE TECH Gender Identity Not on file Sexual Orientation Not on file documented as of this encounter Miscellaneous Notes * Telephone Encounter - Fifi Powers MA - 03/19/2025 8:20 AM CDT Pt was notified of Dr. House's message and verbalized understanding * Telephone Encounter - Fifi Powers MA - 03/19/2025 8:19 AM CDT ----- Message from Mary House MD sent at 03/18/2025 11:54 PM CDT ----- Please inform the patient that the echo showed mostly normal findings. The pumping function is normal. There was evidence of age-related stiffening of the heart called diastolic dysfunction. The treatment of diastolic dysfunction is focused on managing risk factors including weight, blood pressure, exercise, sleep apnea etc.. We can discuss this further at at the next visit. ----- Message ----- From: Interface, Cardiology Results In Sent: 03/15/2025 7:04 PM CDT To: Mary House MD documented in this encounter Plan of Treatment Not on file documented as of this encounter Visit Diagnoses Not on filedocumented in this encounter Care Teams Waterproofing Supervisor Relationship Specialty Start Date End Date Kavitha Zhong DO PCP - General Family Medicine 01/26/25 documented as of this encounter
--- NOTE | 2025-03-19 18:17 | ECG_ITS ---
Test Date: 2025-03-19 19:21:08 Measurements Intervals [place] Rate: 71 P: 37 WI: 191 QRS: 40 QRSD: 102 T: 46 QT: 409 QTc: 447 Interpretive Statements SINUS RHYTHM Compared to ECG 08/25/2024 11:28:36 Sinus arrhythmia no longer present Electronically Signed On 03-19-2025 19:58:06 CDT by Jey Serrano M.D.
[2025-03-19 18:33] LABS: Hematocrit 39.8 % (42.0-52.0); Hemoglobin 13.0 g/dL (14.0-18.0); Immature Granulocyte Percent A 0.3 % (0-0.5); Lymphocytes Absolute Auto 1.66 K/mm3 (0.9-3.2); Mean Corpuscular HGB Conc 32.7 g/dl (32-36); Mean Corpuscular Hemoglobin 32.6 pg (26-34); Mean Corpuscular Volume 99.7 fl (80-100); Nucleated Red Blood Cells Absolute Auto 0.000 K/mm3 (0.0-0.012); Nucleated Red Blood Cells Perc 0.0 % (0.0-0.2); Platelet Count Result 192 k/mm3 (150-375); Red Blood Count 3.99 M/mm3 (4.6-6.20); White Blood Count 7.8 K/mm3 (4.5-10.0)
[2025-03-19 18:44] LABS: Alanine Aminotransferase 43 U/L (6-50); Albumin Level 4.1 g/dL (3.5-5.1); Alkaline Phosphatase 67 U/L (38-126); Anion Gap 9 mmol/L (4-12); Aspartate Amino Transferase 54 U/L (17-59); Bilirubin,Total 0.5 mg/dL (0.2-1.3); Blood Urea Nitrogen 10 mg/dL (9-20); Calcium 8.5 mg/dL (8.4-10.2); Carbon Dioxide 27 mmol/L (22-30); Chloride 93 mmol/L (98-107); Estimated CRCL calculation 164 ml/min; Estimated Glomerular Filt Rate > 60; Glucose 111 mg/dL (65-110); Potassium 3.5 mmol/L (3.4-5.0); Sodium 129 mmol/L (137-145); Total Protein 7.6 g/dL (6.3-8.2)
[2025-03-19 18:48] LABS: INR 1.0; Prothrombin Time 13.0 Seconds (11.1-14.7)
[2025-03-19 18:49] LABS: Partial Thromboplastin Time 27.9 Seconds (22.3-36.8)
[2025-03-19 18:57] LABS: NT Pro B Type Natriuretic Pept 171 pg/mL (19.9-100); Troponin I < 0.012 ng/mL (0.000-0.034)
[2025-03-19] MEDS: SODIUM CHLORIDE 0.9% IV 1,000 ML 999 ML IV CONT (19:52)
[2025-03-19] MEDS: KETOROLAC 30 MG/ML VIAL (*BKC) IV PUSH (19:52)
--- NOTE | 2025-03-19 20:13 | ED.SYNCOPE ---
HPI - Syncope General Chief Complaint: Syncope Stated Complaint: syncopy Time Seen by Provider: 03/19/25 18:05 History of Present Illness HPI narrative: Patient is a 44-year-old male who presents ER after having an episode of syncope at his home. He reports he is sitting in chair at his table and then woke up on the ground to the dog barking. He has pain in his left thigh which has been increasing over the last 2 days. No known trauma. Has chronic edema to bilateral lower extremities. It extends into his abdomen. 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 He got off work and went to a local drinking establishment and had 4 beers and 4 shots of alcohol over the course of 2 hours. He then went home. He does not think that this contributed to his syncopal episode as he did not feel overly intoxicated. Denies fevers or chills or sweats. No chest pain or chest pressure. No pain with deep breath. He is on a water pill to help decrease his edema. Related Data Allergies Allergy/AdvReac Type Severity Reaction Status Date / Time No Known Allergies Allergy Verified 12/22/24 12:59 Review of Systems Review of Systems: All systems reviewed & are unremarkable except as noted in HPI and below Constitutional: Constitutional: Reports no additional constitutional complaints ENT: Reports system reviewed and no additional complaints, except as documented Cardiovascular: Cardiovascular: Reports no additional cardiovascular complaints Respiratory: Respiratory: Reports no additional respiratory complaints Gastrointestinal: Gastrointestinal: Reports no additional gastrointestinal complaints [facility] Past Medical History Medical History (Updated 03/19/25 @ 21:38 by Ernesto Vazquez MD) Umbilical hernia Diabetes Hypertension Anxiety Family History Family History (Updated 12/22/24 @ 08:17 by Sadie Fernando) Father Alcoholism Grandparent Ovarian cancer Cerebrovascular accident Alcoholism Heart disease Social History Social History (Updated 12/22/24 @ 13:02 by Sadie Fernando) Smoking packs per day: 5 Smoking cigarettes per day: 100.0 Years smoked: 20 Smoking pack-years: 100.00 Smoking status: Current every day smoker Alcohol intake: current Drinks per week: 14 Alcohol use details: beer Substance use: current Substance use type: marijuana Do You Feel Safe in your Home?: Yes Lack of Transportation: No Lack of Food: Never True Current Housing: I Have Housing Concerned About Future Housing: No Difficulty Paying Gas/Electric Bills: No Difficulty Paying for Meds: No Currently Unemployed: No Education: High School Diploma/GED Difficulty w/ Childcare or Family Care: No Exam Narrative: GENERAL: Well-appearing, well-nourished, and in no acute distress. HEAD: Normocephalic, atraumatic. ENT: Mucous membranes moist. CHEST: Clear to auscultation. No respiratory distress. HEART: Regular rate and rhythm. Normal peripheral pulses. ABDOMEN: Soft, nontender, nondistended. EXTREMITIES: Normal range of motion. 4+ edema. Extends up to lower abdomen. SKIN: Warm, dry, no rash. NEURO: Alert and oriented x3. PSYCH: Normal mood and affect. Course Course Emergency Course: Patient resting comfortably. Received IV fluid. Educated on lab and imaging results. Appropriate for discharge home. Vital Signs Vital signs: Vital Signs Temperature 97.4 F L 03/19/25 16:39 Pulse Rate 78 03/19/25 16:39 Respiratory Rate 24 H 03/19/25 16:39 Blood Pressure 107/57 L 03/19/25 16:39 Pulse Oximetry 91 03/19/25 16:39 Temperature 97.4 F L 03/19/25 16:39 Pulse Rate 80 03/19/25 20:15 Respiratory Rate 20 03/19/25 20:15 Blood Pressure 146/74 H 03/19/25 20:15 Pulse Oximetry 94 03/19/25 20:15 MDM - Syncope Lab Data 03/19/25 18:28 03/19/25 18:28 Labs: Lab Results 03/19/25 Range/Units 18:28 WBC 7.8 (4.5-10.0) K/mm3 RBC 3.99 L (4.6-6.20) M/mm3 Hgb 13.0 L (14.0-18.0) g/dL Hct 39.8 L (42.0-52.0) % MCV 99.7 (80-100) fl MCH 32.6 (26-34) pg MCHC 32.7 (32-36) g/dl RDW 15.2 H (11.5-14.5) % Plt Count 192 (150-375) k/mm3 MPV 8.5 (7.4-10.4) fl Immature Gran % (Auto) 0.3 (0-0.5) % Neut % (Auto) 70.8 (45.5-73.1) % Lymph % (Auto) 21.3 (18.3-44.2) % Creek % (Auto) 6.0 (2.6-8.5) % Eos % (Auto) 1.2 (0-4.4) % Baso % (Auto) 0.4 (0.2-1.2) % Lymph # (Auto) 1.66 (0.9-3.2) K/mm3 Creek # (Auto) 0.5 (0.1-0.6) K/mm3 Eos # (Auto) 0.1 (0-0.3) K/mm3 Baso # (Auto) 0.0 (0.0-0.1) K/mm3 Abs Immat Gran (auto) 0.02 (0.00-0.031) K/mm3 Absolute Neuts (auto) 5.5 (1.3-6.7) K/mm3 Absolute Nucleated RBC 0.000 (0.0-0.012) K/mm3 Nucleated RBC % 0.0 (0.0-0.2) % PT 13.0 (11.1-14.7) Seconds INR 1.0 APTT 27.9 (22.3-36.8) Seconds Sodium 129 L (137-145) mmol/L Potassium 3.5 (3.4-5.0) mmol/L Chloride 93 L (98-107) mmol/L Carbon Dioxide 27 (22-30) mmol/L Anion Gap 9 (4-12) mmol/L BUN 10 D (9-20) mg/dL Creatinine 0.76 (0.7-1.3) mg/dL Estim Creat Clear Calc 164 ml/min Estimated GFR > 60 (59 - ) Glucose 111 H (65-110) mg/dL Calcium 8.5 (8.4-10.2) mg/dL Total Bilirubin 0.5 (0.2-1.3) mg/dL AST 54 (17-59) U/L ALT 43 (6-50) U/L Alkaline Phosphatase 67 (38-126) U/L Troponin I < 0.012 (0.000-0.034) ng/mL NT-Pro-B Natriuret Pep 171 H (19.9-100) pg/mL Total Protein 7.6 (6.3-8.2) g/dL Albumin 4.1 (3.5-5.1) g/dL Ethyl Alcohol 138 (<10) mg/dL Imaging Data Radiologist's impression: ITS Impressions Chest X-Ray 03/19/25 18:47 IMPRESSION: 1: NO ACUTE CARDIOPULMONARY DISEASE. Venous Doppler Study 03/19/25 19:18 IMPRESSION: 1: No lower extremity deep venous thrombosis. ECG Data EKG #1: ECG completion date: 03/19/25 ECG completion time: 19:21 EKG Interpretation: normal rate (71), sinus rhythm, normal QRS, normal QT and NL axis Discharge Plan Discharge Clinical Impression: Syncope, Muscle strain of left thigh, Alcohol intoxication Patient Disposition: Home Condition: Stable Instructions: Muscle Strain (ED), Syncope (ED) Additional Instructions: Please return to the emergency department if you develop severe and persistent chest pain, difficulty breathing, dizziness, leg swelling or if you are coughing up blood as these can be signs of a medical emergency. Please call your doctor for a follow up appointment to determine the need for further testing. Patient Language: Malay Prescriptions: No Action amlodipine [Norvasc] 10 mg tablet 10 mg PO DAILY Qty: 90 0RF carvedilol 12.5 mg tablet 12.5 mg PO Q12H Qty: 180 0RF Rx Instructions: must administer with a meal/food hydrochlorothiazide 12.5 mg tablet 12.5 mg PO DAILY Qty: 90 0RF losartan 100 mg tablet 100 mg PO DAILY Qty: 90 0RF Follow-up/Referrals: Kavitha Zhong DO [Primary Care Provider, Family Practice] - 1 Week
== END 2025-03-19 22:02 | disposition home or self-care (01) ==
PROVIDERS: Emergency Provider Emergency Medicine; PCP Family Medicine
DX: R55 Syncope and collapse (principal); S76.912A Strain of unspecified muscles, fascia and tendons at thigh level, left thigh, initial encounter; X58.XXXA Exposure to other specified factors, initial encounter; F10.120 Alcohol abuse with intoxication, uncomplicated; F17.210 Nicotine dependence, cigarettes, uncomplicated; F12.90 Cannabis use, unspecified, uncomplicated
CPT/HCPCS: 36415; 71046; 80053; 82077; 83880; 84484; 85025; 85610; 85730; 93005; 93970; 96361; 96374; 99284; J1885; J7030